=== PATIENT | male | born 1975 | race African-American/Black ===

== ENCOUNTER 2016-10-11 08:55 | Emergency (ER) | payer SELFPAY ==
[~2016-10-11] VITALS: Ht 180.3 cm; Wt 81.5 kg
[2016-10-11 09:00] VITALS: Ht 180.3 cm; Wt 81.5 kg
[2016-10-11] MEDS ORDERED: IPRATROPIUM (NEB) 0.5 MG/2.5 ML AMP NEB STA (09:24)
[2016-10-11] MEDS ORDERED: ALBUTEROL 0.083% (NEB) 2.5 MG/3 ML AMP NEB STA (09:24)
[2016-10-11] MEDS ORDERED: predniSONE 20 MG TAB PO STA (09:24)
[2016-10-11] MEDS ORDERED: PRED20TA PO (09:58)
[2016-10-11] MEDS ORDERED: BECL8.7A5 INH (09:58)
[2016-10-11] MEDS ORDERED: ALBU8.5H3 INH (09:58)
--- NOTE | 2016-10-11 10:02 | ERD ---
ER Documentation Chief Complaint Date/Time DATE: 10/11/16 TIME: 10:00 Chief Complaint Complkains of SOB Hx of Asthma HPI Patient is a 41-year-old male who has a history of asthma complaining of asthma exacerbation that began last night. He uses Qvar and albuterol. He still has albuterol at home when he ran out of Qvar. She denies any fever or cough. He denies any chest pain or palpitations. Denies any pain. ROS All systems reviewed and are negative except as per history of present illness. Medications Home Meds Active Scripts Prednisone* (Prednisone*) 20 Mg Tab, 40 MG PO DAILY for 4 Days, TAB Prov:MINERVA MENA PA-C 10/11/16 Albuterol Sulfate* (Proair HFA*) 8.5 Gm Hfa.aer.ad, 2 PUFF INH Q4, #1 INHALER Prov:MINERVA MENA PA-C 10/11/16 Beclomethasone Dip* (Qvar 80*) 7.3 Gm Inha, 1 PUFF INH BID, #1 INHALER Prov:MINERVA MENA PA-C 10/11/16 Allergies Allergies: Coded Allergies: Penicillins (Verified Allergy, Mild, Rash, Hives, 10/11/16) PMhx/Soc Hx Respiratory Disorders: Yes (ASTHMA) FmHx Family History: No diabetes Physical Exam Vitals Vital Signs Date Time Temp Pulse Resp B/P Pulse Ox O2 Delivery O2 Flow Rate FiO2 10/11/16 09:41 88 17 94 21 10/11/16 09:00 97.1 77 20 134/60 98 Physical Exam General: well developed, well nourished, alert, nontoxic, no distress Head: normocephalic, atraumatic Respiratory: Bilateral inspiratory wheezing, no use of accessory muscles or labored breathing, states in full sentences Cardiovascular: RRR, No murmurs Results 24 hrs Current Medications Medications (Trade) Dose Ordered Sig/Pierre Route PRN Reason Start Time Stop Time Status Last Admin Dose Admin Albuterol (Proventil 0.083% (Neb)) 2.5 mg ONCE STAT NEB 10/11/16 09:24 10/11/16 09:26 DC 10/11/16 09:38 Ipratropium [place] (Atrovent 0.02% (Neb)) 0.5 mg ONCE STAT NEB 10/11/16 09:24 10/11/16 09:26 DC 10/11/16 09:38 Prednisone (Prednisone) 60 mg ONCE STAT PO 10/11/16 09:24 10/11/16 09:26 DC 10/11/16 09:33 Procedures/MDM Patient presents with asthma exacerbation. He does have wheezing on exam. He is satting 98% at room air and is otherwise well-appearing. He was given prednisone and a breathing treatment and had relief of his symptoms and he was discharged with Qvar, albuterol, and short course of prednisone. Recommended this patient follow up with her primary care doctor within 48 hours or return to the emergency room for any worsening of symptoms. However this time I do believe there is suitable for outpatient management. I answered all their questions and they agreed with the plan and were discharged home. Departure Diagnosis: Primary Impression: Asthma exacerbation Condition: Stable Patient Instructions: Asthma Medications Additional Instructions: Call your primary care doctor TOMORROW for an appointment during the next 1-2 days.See the doctor sooner or return here if your condition worsens before your appointment time. MINERVA MENA PA-C Oct 11, 2016 10:02
[2016-10-11 10:22] VITALS: BP 134/60; PULSE 81; RESP 20; TEMP 98.4
== END 2016-10-11 10:17 | disposition home or self-care (01) ==
LOC: FTE 08:55
DX: J45.901 Unspecified asthma with (acute) exacerbation (principal)
CPT/HCPCS: 94664; 99284; J7512